=== PATIENT | female | born 1980 | race Caucasian/White ===

== ENCOUNTER 2020-07-22 14:55 | Emergency (ER) | payer OTHER, SELFPAY ==
[2020-07-22 15:06] VITALS: BP 140/71; PULSE 89; RESP 18; TEMP 37.2; O2SAT 100
--- NOTE | 2020-07-22 15:27 | ED.BACK ---
HPI - Back Pain/Injury General Chief Complaint: Back Pain/Injury Stated Complaint: lowere back pain Source: patient Mode of arrival: ambulatory Limitations: no limitations History of Present Illness HPI Narrative: Patient is a 39-year-old female who presents complaining of lower back pain x3 days. Patient denies urinary complaints. Denies known injury. She reports she lifts repeatedly during the daytime but does not remember if she injured self. She reports taken Tylenol without relief. She denies loss of bowel or bladder control. Patient ambulatory but appears uncomfortable. MD elicited complaint: back pain Related Data Allergies Allergy/AdvReac Type Severity Reaction Status Date / Time Penicillins Allergy Severe Anaphylaxis Verified 07/22/20 15:15 Review of Systems Review of Systems: Narrative: CONSTITUTIONAL: Denies fever, chills, or sweats. EYES: Denies visual changes, redness, or discharge. ENT: Denies rhinorrhea, congestion, sore throat, or otalgia. CARDIOVASCULAR: Denies chest pain, palpitations, or edema. RESPIRATORY: Denies cough or dyspnea. GASTROINTESTINAL: Denies abdominal pain, nausea, vomiting, or diarrhea. GENITOURINARY: Denies dysuria or hematuria. SKIN: Denies rash or itching. MUSCULOSKELETAL: Reports lower back pain, denies joint pain, or myalgia. NEUROLOGIC: Denies headache, numbness, dizziness, or weakness. PSYCHIATRIC: Denies anxiety or depression. [facility] Past Medical History Medical History Anxiety Urinary tract infection Surgical History Surgical History History of hysterectomy Social History Social History (Updated 07/22/20 @ 15:30 by JERAMY Mcintyre) Smoking status: Current every day smoker Tobacco type: cigarettes Alcohol intake: never Substance use: current Substance use type: marijuana Living arrangements: with family Gender identity (if verbalized by the patient): Female Exam Narrative: Exam Narrative: GENERAL: well-nourished female, in no acute distress, appears uncomfortable with ambulation HEAD: Normocephalic, atraumatic. EYES: No redness or drainage. ENT: Mucous membranes pink and moist. CHEST: No respiratory distress. HEART: Regular rate and rhythm. MUSCULOSKELETAL: No bony tenderness. EXTREMITIES: Normal range of motion. No edema. SKIN: Warm, dry, no rash. NEURO: No focal deficits. Alert and oriented x3. Gait steady. PSYCH: Normal affect. No signs of depression or anxiety. Course Vital Signs Vital signs: Vital Signs Temperature 37.2 C 07/22/20 15:06 Pulse Rate 89 07/22/20 15:06 Respiratory Rate 18 07/22/20 15:06 Blood Pressure 140/71 07/22/20 15:06 Pulse Oximetry 100 07/22/20 15:06 Temperature 37.2 C 07/22/20 15:06 Pulse Rate 89 07/22/20 15:06 Respiratory Rate 18 07/22/20 15:06 Blood Pressure 140/71 07/22/20 15:06 Pulse Oximetry 100 07/22/20 15:06 Reviewed. Patient has been instructed to follow-up with her PCP regarding her blood pressure. MDM - Back Pain/Injury MDM Narrative Medical decision making narrative: Patient most likely has strain of lumbar region. Patient does not have loss of bowel or bladder control. No saddle paresthesia. UA negative. Patient given IM Toradol in urgent care. This with patient the need for follow-up. Patient to follow-up with PCP in 1 week if pain continues. Discussed taking [id number] Tylenol or ibuprofen for pain along with muscle relaxant. Patient warned not to drive muscle relaxer. Patient is stable for discharge to home with outpatient follow-up as directed. Differential Diagnosis Differential diagnosis: Likely lumbar radiculopathy, sciatica, strain of lumbar region and discitis Lab Data Labs: Urine Glucose Negative Reference Range: Negative Urine Bilirubin Neg
[2020-07-22] MEDS: KETOROLAC (*BKC) 60 MG/2 ML VIAL IM (15:41)
== END 2020-07-22 16:12 | disposition home or self-care (01) ==
PROVIDERS: Emergency Provider Nurse Practitioner
DX: S39.012A Strain of muscle, fascia and tendon of lower back, initial encounter (principal); X58.XXXA Exposure to other specified factors, initial encounter
CPT/HCPCS: 81003; 96372; 99213; A9270; G0463; J1885

== ENCOUNTER 2021-04-06 13:17 | Outpatient (CLI) | payer OTHER, SELFPAY ==
--- NOTE | ~2021-04-06 | MMUS_ITS ---
EXAMINATION: MM diagnostic jc BI w jorje, US breast RT limited HISTORY: Painful palpable lump in the upper right breast at the 12:00 location. TECHNIQUE: Craniocaudal, mediolateral, and mediolateral oblique 3-D tomosynthesis images of the breas ts were performed and synthetic 2-D images were generated. CAD analysis was submitted and interpreted . High resolution limited right breast ultrasound was performed. COMPARISON: None, baseline BREAST PARENCHYMAL COMPOSITION: The breasts are heterogeneously dense, which may obscure small masses . FINDINGS: MAMMOGRAPHIC FINDINGS: There is no evidence of suspicious mass, calcification, or architectural distortion in either breast to suggest malignancy. No mammographic correlate is identified for the reported painful lump of the right breast. ULTRASOUND: There is no evidence of focal abnormal solid or cystic mass in the vicinity of the reported palpable right breast lump. There is a 9 mm cyst at the 10:00 location near the nipple. IMPRESSION: 1. No specific mammographic or sonographic correlate is identified for the reported palpable abnormal ity of concern. Further evaluation at this time should be based on clinical assessment. Continued fol low-up physical examination is recommended. 2. Recommend routine screening mammography in one year. BI-RADS Category 2: Benign finding(s). Reviewed, dictated and finalized at location A. IMPRESSION: 1. No specific mammographic or sonographic correlate is identified for the repo rted palpable abnormality of concern. Further evaluation at this time should be based on clinical assessment. Continued follow-up physical examination is will mmended. 2. Recommend routine screening mammography in one year. BI-RADS Category 2: Benign finding(s).
== END 2021-04-06 13:18 | disposition home or self-care (01) ==
LOC: ANHIMG 13:20
PROVIDERS: PCP Family Medicine
DX: N63.11 Unspecified lump in the right breast, upper outer quadrant (principal)
CPT/HCPCS: 76642; 77062; 77066; G0279

== ENCOUNTER 2022-03-16 14:53 | Emergency (ER) | payer OTHER, SELFPAY ==
[2022-03-16 15:00] VITALS: BP 116/74; PULSE 85; RESP 16; TEMP 37.6; O2SAT 99
--- NOTE | 2022-03-16 15:23 | ED.DENTAL ---
HPI - Dental/Oral General Chief complaint: Dental/Oral Stated complaint: tooth pain Time Seen by Provider: 03/16/22 15:15 Source: patient Mode of arrival: ambulatory History of Present Illness HPI Narrative: 41 y/o female presented for c/o left upper dental pain and gum swelling x4 days. States today the left cheek is more swollen as well. Has not taken anything for pain. Reports a history of multiple broken/rotten teeth and missing teeth, stating they fall out. States dentists will not take her insurance. Denies headache, n/v/d/f/c. Complaint: tooth pain Related Data Allergies Allergy/AdvReac Type Severity Reaction Status Date / Time Penicillins Allergy Severe Anaphylaxis Verified 07/22/20 15:15 Review of Systems Review of Systems: CONSTITUTIONAL: Denies body aches, fever, chills ENT: Denies rhinorrhea, congestion, sore throat, or otalgia. Reports dental pain CARDIOVASCULAR: Denies chest pain, palpitations RESPIRATORY: Denies cough or dyspnea. SKIN: Denies rash, itching, or wounds. MUSCULOSKELETAL: Denies myalgia. NEUROLOGIC: Denies headache, numbness, tingling, or weakness. [facility] Past Medical History Medical History Anxiety Urinary tract infection Surgical History Surgical History History of hysterectomy Social History Social History Smoking status: Current every day smoker Tobacco type: cigarettes Alcohol intake: never Substance use: current Substance use type: marijuana Gender identity (if verbalized by the patient): Female Comments At time of signature, I have reviewed and agree with nursing past medical, surgical, social and family history unless otherwise noted. Please see nursing chart for further information. There is no relevant family history pertinent to the presenting complaint Exam Narrative: GENERAL: Appears in pain; no distress HEAD: Normocephalic, atraumatic. Left cheek with mild swelling under left eye, no bruising EYES: EOMI. No redness or drainage. Conjunctivae normal. ENT: Mucous membranes pink and moist. TMs normal bilaterally. Multiple rotting and broken teeth, multiple missing teeth. Left upper gum swelling at about #13 and #14, no active drainage NECK: Normal AROM. Supple. No lymphadenopathy. CHEST: No respiratory distress. Clear to auscultation. HEART: Regular rate and rhythm. No murmur appreciated. SKIN: Warm, dry, no rash. Normal skin turgor. NEURO: No focal deficits. Alert and oriented x3. Gait steady. Course Course Emergency Course: Patient is aware of diagnosis, understands and agrees to treatment plan. Anticipatory guidance given. Patient agrees to follow-up as directed and is aware of reasons to seek care at the emergency department. Portions of this record may have been created with voice recognition software Level of Care: Express Care Visit Vital Signs Vital signs: Vital Signs Temperature 99.6 F 03/16/22 15:00 Pulse Rate 85 03/16/22 15:00 Respiratory Rate 16 03/16/22 15:00 Blood Pressure 116/74 03/16/22 15:00 Pulse Oximetry 99 03/16/22 15:00 Oxygen Delivery Room Air 03/16/22 15:00 Temperature 99.6 F 03/16/22 15:00 Pulse Rate 85 03/16/22 15:00 Respiratory Rate 16 03/16/22 15:00 Blood Pressure 116/74 03/16/22 15:00 Pulse Oximetry 99 03/16/22 15:00 Oxygen Delivery Room Air 03/16/22 15:00 MDM - Dental/Oral MDM Narrative Medical decision making narrative: Patients pain and complaint with physical findings are consistent with dental abscess. There are no focal signs of space occupying lesions that are compromising to the airway. Patient is non-toxic appearing. The floor of the mouth is soft with no signs of Sebastián's Angina; Patient is without trismus or drooling and able to swallow secretions. Patient is felt appropriate for
== END 2022-03-16 15:31 | disposition home or self-care (01) ==
PROVIDERS: Emergency Provider Nurse Practitioner Family
DX: K04.7 Periapical abscess without sinus (principal); F17.210 Nicotine dependence, cigarettes, uncomplicated
CPT/HCPCS: 99213; G0463

== ENCOUNTER 2022-10-12 09:28 | Outpatient (CLI) | payer OTHER, SELFPAY ==
--- NOTE | ~2022-10-12 | MR_ITS ---
MRI of the brain Clinical History: Headache Technique: Axial and sagittal T1-weighted images were acquired. These were followed by axial T2-weigh selam, diffusion weighted, gradient, and FLAIR images. Following intravenous administration of 9 cc Mul tiHance gadolinium, T1-weighted fat-sat imaging was performed in the axial and coronal planes. Findings: No abnormal signal seen in the brain parenchyma. No acute infarct, intracranial hemorrhage, or mass lesion. Ventricles and subarachnoid spaces are unremarkable. Orbits are unremarkable. Paranasal sinuses and m astoid air cells are clear. Major intracranial flow voids appear intact. Sagittal midline structures are intact. No abnormal postcontrast enhancement identified. IMPRESSION: Unremarkable exam. Reviewed, dictated and finalized at location M. [facility] IMPRESSION: Unremarkable exam.
== END 2022-10-12 09:29 | disposition home or self-care (01) ==
PROVIDERS: PCP Family Medicine; Visit Provider Nurse Practitioner Family
DX: R51.9 Headache, unspecified (principal); R42 Dizziness and giddiness
CPT/HCPCS: 70553; A9577

== ENCOUNTER 2023-08-31 10:48 | Emergency (ER) | payer OTHER, SELFPAY ==
[2023-08-31 11:06] VITALS: BP 124/66; PULSE 70; RESP 16; TEMP 37.1; O2SAT 99
--- NOTE | 2023-08-31 11:19 | ED.GENADULT ---
HPI - General Adult General Chief complaint: Urogenital-Female Stated complaint: urinary issue Source: patient, RN notes reviewed and old records reviewed Mode of arrival: ambulatory Limitations: no limitations History of Present Illness HPI narrative: 42-year-old female presents to [facility] with complaints urinary frequency, urgency, incomplete bladder emptying, suprapubic pain for 2-3 days. Patient states gets frequent UTIs. Last UTI was 1.5 months ago MD complaint: urinary complaints Onset (ago): day(s) (3) Related Data Allergies Allergy/AdvReac Type Severity Reaction Status Date / Time Penicillins Allergy Severe Anaphylaxis Verified 08/31/23 11:10 Review of Systems Constitutional: Constitutional: Reports no additional constitutional complaints Eyes: Eyes: Reports no additional eye complaints ENT: Reports system reviewed and no additional complaints, except as documented Cardiovascular: Cardiovascular: Reports no additional cardiovascular complaints Respiratory: Respiratory: Reports no additional respiratory complaints Gastrointestinal: Gastrointestinal: Reports as per HPI and Reports abdominal pain Genitourinary: Genitourinary: Reports nocturia, Reports dysuria, Denies pelvic pain, Denies flank pain, Reports urinary urgency, Denies vaginal discharge and Denies vaginal odor Neurologic: Reports system reviewed and no additional complaints, except as documented [facility] Past Medical History Medical History Anxiety Urinary tract infection Surgical History Surgical History History of hysterectomy Social History Social History Smoking status: Current every day smoker Tobacco type: cigarettes Alcohol intake: never Substance use: current Substance use type: marijuana Living arrangements: with family Gender identity (if verbalized by the patient): Female Comments At the time of my signature, I reviewed and agree with the nursing past medical, surgical, social, and family history. There is no relevant family history pertinent to the patient complaint. Exam Const: General: cooperative, healthy appearing, no acute distress and well nourished Nutritional Appearance: well nourished Orientation/consciousness: patient oriented x3 Limitations: no limitations HENMT: Head: normal to inspection and normocephalic Ears: external ears normal, TM's normal bilaterally, mastoids normal and Abnormal EAC present Face/Nose/Sinus: normal facial exam Face and sinus: normal facial exam Mouth: Yes Normal oral and palatal mucosa present, Yes oropharynx normal and Yes moist mucous membranes Throat: posterior oropharynx normal, tonsils normal, uvula midline and no uvular edema Eyes: General: appearance normal, both eyes and all related structures Sclera: sclerae normal Pupils: Equal, round and reactive pupils present Resp: Effort & Inspection: normal respiratory effort, able to speak in complete sentences, no audible wheezes, no cough, no respiratory distress and no retractions Auscultation: clear to auscultation bilaterally, no crackles, no rales, no rhonchi and no wheezes Cardio: Rate: regular rate Rhythm: regular rhythm GI: Inspection: normal to inspection GI Palp: No abdominal tenderness, No Soft to palpation, No Tenderness to palpation present (GI), No Guarding due to palpation present (GI), No Rigid due to palpation, No No hepatosplenomegaly present and No Bladder palpation abnormal Auscultation: normal bowel sounds : General: No CVA tenderness and Yes no CVA tenderness Skin: General skin exam: normal color and no rashes or lesions noted Neuro: General: patient oriented x3 Cranial nerves: Yes Equal, round and reactive pupils present Psych: Appearance: grossly normal Course Course Emergency Course: Some parts of this dictation w
== END 2023-08-31 11:37 | disposition home or self-care (01) ==
PROVIDERS: Emergency Provider Registered Nurse; PCP Family Medicine
DX: N39.0 Urinary tract infection, site not specified (principal); F17.210 Nicotine dependence, cigarettes, uncomplicated; F12.90 Cannabis use, unspecified, uncomplicated
CPT/HCPCS: 81003; 99213; G0463